=== PATIENT | female | born 1955 | race Caucasian/White ===

== ENCOUNTER → 2017-02-01 | Outpatient (CLI) | payer BC ==
[~2017-02-01] MED LIST: DILT120C43 PO; HYDR-4246 PO; LEVO112T7 PO; MELO7.5T12 PO; ONDA4TAB4 PO
[2017-02-01 15:09] LABS: BASOPHILS % (AUTO) 0.3 % (0-2); EOSINOPHILS # (AUTO) 0.1 T/MM3 (0-0.5); EOSINOPHILS % (AUTO) 3.2 % (0-4); HCT - HEMATOCRIT 39.3 % (36-46); HGB - HEMOGLOBIN 12.7 GM/DL (12-16); IMMATURE GRANULOCYTE # (AUTO) 0.01 T/MM3 (0.00-0.03); IMMATURE GRANULOCYTE % (AUTO) 0.3 % (0.0-0.5); LYMPHOCYTES # (AUTO) 1.1 T/MM3 (1-4.8); LYMPHOCYTES % (AUTO) 32.9 % (23-45); MEAN CORPUSCULAR HGB 28.2 UUG (26-34); MEAN CORPUSCULAR HGB CONC(MCHC 32.3 GM/DL (31-37); MEAN CORPUSCULAR VOLUME 87.3 UM3 (80-100); MEAN PLATELET VOLUME 10.7 UM3 (9.4-12.4); MONOCYTES # (AUTO) 0.3 T/MM3 (0-0.8); MONOCYTES % (AUTO) 7.5 % (0-9.0); NEUTROPHILS #(AUTO)-ABSOLUTE 1.9 T/MM3 (1.8-7.7); NEUTROPHILS % (AUTO) 55.8 % (33-66); WBC - WHITE BLOOD COUNT 3.5 T/MM3 (4.5-11.0)
== END ==
LOC: LAB 14:57
PROVIDERS: ATTEND Internal Medicine Medical Oncology
DX: D72.819 Decreased white blood cell count, unspecified (principal)
CPT/HCPCS: 36415; 83615; 85025; 86038

== ENCOUNTER → 2017-02-08 | Outpatient (CLI) | payer BC ==
--- NOTE | 2017-02-08 08:39 | DI ---
Indication: ITS.REASON: D72.829 Elevated white blood cell count, unspecified PROCEDURE: US ABDOMEN LIMITED: Encounter: Initial Comparison: None Technique: Grayscale and color Doppler sonographic imaging of the left upper quadrant of the abdomen was performed. Findings/ Impression: The spleen appears normal measuring 8.5 cm in length. No focal splenic lesions or masses. .
== END ==
LOC: IMA 07:26
PROVIDERS: ATTEND Internal Medicine Medical Oncology
DX: D72.829 Elevated white blood cell count, unspecified (principal)

== ENCOUNTER → 2017-04-14 | Outpatient (CLI) | payer BC ==
[2017-04-14 11:38] LABS: BASOPHILS % (AUTO) 0.8 % (0-2); EOSINOPHILS # (AUTO) 0.1 T/MM3 (0-0.5); EOSINOPHILS % (AUTO) 2.8 % (0-4); HCT - HEMATOCRIT 36.3 % (36-46); HGB - HEMOGLOBIN 11.8 GM/DL (12-16); LYMPHOCYTES % (AUTO) 40.7 % (23-45); MEAN CORPUSCULAR HGB 28.2 UUG (26-34); MEAN CORPUSCULAR HGB CONC(MCHC 32.5 GM/DL (31-37); MEAN CORPUSCULAR VOLUME 86.6 UM3 (80-100); MEAN PLATELET VOLUME 11.1 UM3 (9.4-12.4); MONOCYTES # (AUTO) 0.3 T/MM3 (0-0.8); MONOCYTES % (AUTO) 10.2 % (0-9.0); NEUTROPHILS #(AUTO)-ABSOLUTE 1.1 T/MM3 (1.8-7.7); NEUTROPHILS % (AUTO) 45.5 % (33-66); RED BLOOD COUNT 4.19 M/MM3 (4.00-5.20); WBC - WHITE BLOOD COUNT 2.5 T/MM3 (4.5-11.0)
== END ==
LOC: LABN 11:33
PROVIDERS: ATTEND Internal Medicine Medical Oncology
DX: D72.819 Decreased white blood cell count, unspecified (principal)
CPT/HCPCS: 85025